=== PATIENT | female | born 1950 | race Caucasian/White ===

== ENCOUNTER → 2016-07-25 | Outpatient (CLI) | payer BC ==
[~2016-07-25] MED LIST: SIMV40TA2; SYN100
--- NOTE | 2016-07-25 13:57 | MAMMOGRAPHY REPORT ---
BILATERAL DIGITAL SCREENING MAMMOGRAM WITH CAD: 07/25/2016 CLINICAL HISTORY: Routine screening. Patient has no complaints. TECHNIQUE: Current study was also evaluated with a Computer Aided Detection (CAD) system. Bilatera l CC and MLO views were obtained. COMPARISON: Comparison is made to exams dated: 07/23/2015 mammogram, 07/18/2014 mammogram, 06/14/2013 mammogram, 05/27/2013 mammogram, 05/26/2012 mammogram, and 05/05/2011 mammogram - [facility]. BREAST COMPOSITION: The tissue of both breasts is heterogeneously dense, which may obscure small ma sses. FINDINGS: No suspicious masses, calcifications, or areas of architectural distortion are noted in e ither breast. There has been no significant interval change compared to prior exams. Asymmetry seen within the left medial breast on the cc view is stable. IMPRESSION: ACR BI-RADS CATEGORY 2: BENIGN There is no mammographic evidence of malignancy. A 1 year screening mammogram is recommended. The p atient will receive written notification of the results. Approximately 10% of breast cancers are not detected with mammography. A negative mammographic repor t should not delay biopsy if a clinically suggestive mass is present. Sadie Louis M.D. /:07/25/2016 07:48:09 Supervisor Estimator And Drafter: Anusha BRASHER)(Eladio)(BD), [facility] letter sent: Normal 1/2 BI-RADS Code: ACR BI-RADS Category 2: Benign
== END | disposition home or self-care (01) ==
LOC: C.MAMM 07:17
PROVIDERS: ATTEND Family Medicine
DX: Z12.31 Encounter for screening mammogram for malignant neoplasm of breast (principal)

== ENCOUNTER → 2017-06-02 | Outpatient (CLI) | payer BC, OTHER ==
[~2017-06-02] MED LIST changes: +GADAVIST IV PRN
--- NOTE | 2017-06-02 18:34 | DIAGNOSTIC IMAGING REPORT ---
PELVIC COMBO HISTORY: 66 years-old Female COMPLEX OVARIAN CYST abdominal bloating with frequent urination. Chronic generalized pelvic pain. COMPARISON: None available TECHNIQUE: Multiplanar multisequence MRI of the pelvis was obtained both with and without the use of 7 mL Gadavist FINDINGS: Large [id number]-opyf diversional therapist localizer images demonstrate no gross abnormality of the abdomen. Uterus measures 3.8 x 4.6 x 7.2 cm and is anteflexed. The junctional zone measures 7 mm in thickness. No definite mass lesions of the uterus identified. There is trace fluid within the endocervical canal. The urinary bladder is partially collapsed and is unremarkable. Imaged distal ureters are within normal limits. The right ovary measures 3.1 x 2.3 x 3.4 cm and appears to be within normal limits. Left ovary measures 3.9 x 2.6 x 3.3 cm. There is a round T2 hyperintense lesion of the left ovary measuring 2.2 x 2.3 x 2.7 cm containing a thin internal septation along the inferior medial portion as seen on image 14 series 3. The thin internal septation demonstrates minimal enhancement. There is also some enhancing mural nodularity along the inferior posterior portion of the cystic lesion measuring up to 1.3 x 0.8 cm as seen on image 21 series 10. No right adnexal mass lesions are identified. IMPRESSION: 1. 2.7 cm complex cystic lesion of the left ovary with enhancing area of mural nodularity as detailed above. These findings are suspicious for possible epithelial ovarian neoplasm in a patient of this age group. Gynecologic surgical consultation recommended. 2. Unremarkable appearance of the uterus and right ovary. The above report was generated using voice recognition software. It may contain grammatical, syntax or spelling errors. Electronically signed by: Abdiel Murray M.D. 06/02/2017 6:32 PM Dictated Date/Time: 06/02/2017 6:19 PM
== END | disposition home or self-care (01) ==
LOC: C.MRI 17:03
PROVIDERS: ATTEND Family Medicine
DX: N83.201 Unspecified ovarian cyst, right side (principal); N83.202 Unspecified ovarian cyst, left side; R93.8 Abnormal findings on diagnostic imaging of other specified body structures; Z80.41 Family history of malignant neoplasm of ovary

== ENCOUNTER → 2017-07-28 | Outpatient (CLI) | payer BC ==
[~2017-07-28] MED LIST changes: -GADAVIST IV PRN
--- NOTE | 2017-07-28 15:14 | MAMMOGRAPHY REPORT ---
BILATERAL DIGITAL SCREENING MAMMOGRAM TOMOSYNTHESIS WITH CAD: 07/28/2017 CLINICAL HISTORY: Routine screening. Patient has no complaints. TECHNIQUE: Breast tomosynthesis in addition to standard 2D mammography was performed. Current study was also evaluated with a Computer Aided Detection (CAD) system. COMPARISON: Comparison is made to exams dated: 07/25/2016 mammogram, 07/23/2015 mammogram, 07/18/2014 m ammogram, 06/14/2013 ultrasound, 05/27/2013 mammogram, and 05/26/2012 mammogram - [facility]. BREAST COMPOSITION: The tissue of both breasts is heterogeneously dense, which may obscure small mas ses. FINDINGS: The parenchymal pattern is unchanged. No developing mass, architectural distortion or clus ter of suspicious microcalcifications is seen in either breast. IMPRESSION: ACR BI-RADS CATEGORY 2: BENIGN There is no mammographic evidence of malignancy. A 1 year screening mammogram is recommended. The pa tient will receive written notification of the results. Approximately 10% of breast cancers are not detected with mammography. A negative mammographic report should not delay biopsy if a clinically suggestive mass is present. Mariaelena Claudio M.D. ay/:07/28/2017 07:57:00 Dba Developer: Radha HARRIS(R)(M), [facility] letter sent: Normal 1/2 BI-RADS Code: ACR BI-RADS Category 2: Benign
== END | disposition home or self-care (01) ==
LOC: C.MAMM 07:12
PROVIDERS: ATTEND Family Medicine
DX: Z12.31 Encounter for screening mammogram for malignant neoplasm of breast (principal)

== ENCOUNTER → 2017-10-20 | Outpatient (CLI) | payer BC ==
--- NOTE | 2017-10-20 10:05 | DIAGNOSTIC IMAGING REPORT ---
CHEST 2 VIEWS ROUTINE CLINICAL HISTORY: BACTERIAL PNEUMONIA COMPARISON STUDY: Chest radiograph April 09, 2006. FINDINGS: Lung volumes are at the lower limits of normal. There is no consolidation to suggest pneumonia. Pulmonary vascularity is normal. Cardiomediastinal silhouette is unremarkable. There is no pneumothorax or pleural effusion. IMPRESSION: No acute cardiopulmonary findings. Electronically signed by: Сергей Sandhu M.D. 10/20/2017 10:04 AM Dictated Date/Time: 10/20/2017 10:03 AM
== END | disposition home or self-care (01) ==
LOC: C.RADBC 09:46
PROVIDERS: ATTEND Family Medicine
DX: J15.9 Unspecified bacterial pneumonia (principal)